=== PATIENT | female | born 1965 | race Caucasian/White ===

== ENCOUNTER 2020-03-19 12:22 | Inpatient (IN) | payer SELFPAY ==
[~2020-03-19] VITALS: Ht 167.6 cm; Wt 108.4 kg
[2020-03-19 12:25] VITALS: Ht 167.6 cm; Wt 108.4 kg
[2020-03-19 13:23] LABS: ALKALINE PHOSPHATASE 75 U/L (46-116); ALT/SGPT 30 U/L (14-59); AST/SGOT 28 U/L (15-37); BILIRUBIN TOTAL 0.34 mg/dL (0.20-1.00); C REACTIVE PROTEIN 11.3 mg/dL (<=0.9); CALCIUM 8.5 mg/dL (8.5-10.1); CARBON DIOXIDE 29.9 mmol/L (21-32); CHLORIDE SERUM 89 mmol/L (98-107); CREATININE SERUM 0.7 mg/dL (0.6-1.0); GFR1 > 60 mL/min; GLUCOSE SERUM 183 mg/dL (74-106); LACTIC DEHYDROGENASE (LDH) 283 U/L (100-190); POTASSIUM SERUM 3.5 mmol/L (3.5-5.1); SODIUM SERUM 125 mmol/L (136-145); TOTAL PROTEIN, SERUM 7.4 g/dL (6.4-8.2)
[2020-03-19 13:27] LABS: BASOPHIL % 0.1 % (0-2); PLATELET COUNT 319 x10^3mcL (130-400)
[2020-03-19 13:29] LABS: RED CELL DISTRIBUTION WIDTH 14.7 % (11.5-14.5)
[2020-03-19 13:38] LABS: ALBUMIN 3.2 g/dL (3.4-5.0)
[2020-03-19] MEDS ORDERED: TIROSINT50 MC1 PO (14:50)
[2020-03-19] MEDS ORDERED: FORTAMET500 M1 PO (14:50)
[2020-03-19] MEDS ORDERED: ZITHROMAX Z-PA250 MG PO (14:50)
[2020-03-19] MEDS ORDERED: LOSARTAN POTASS25 M1 PO (14:51)
[2020-03-19 15:15] LABS: MAGNESIUM 2.1 mg/dL (1.8-2.4); PHOSPHOROUS 3.6 mg/dL (2.5-4.9)
[2020-03-19 15:16] LABS: CHOLESTEROL/HDL RATIO 2.7
[2020-03-19 15:25] LABS: FREE T4 1.68 ng/dL (0.76-1.46); FREE THYROXINE INDEX 4.3 ug/dL (1.4-4.5); T4(THYROXINE) 12.4 ug/dL (4.7-13.3)
[2020-03-19] MEDS ORDERED: LEVO-T100 MCG PO (15:55)
[2020-03-19 16:47] LABS: T3 TOTAL 0.61 ng/mL
[2020-03-19 17:02] VITALS: BP 118/57
[2020-03-19 23:55] VITALS: BP 109/57
[2020-03-20 06:31] VITALS: BP 95/44
[2020-03-20 08:39] LABS: PLATELET COUNT 346 x10^3mcL (130-400)
[2020-03-20 08:56] LABS: BASOPHIL % 0 % (0-2); RED CELL DISTRIBUTION WIDTH 14.6 % (11.5-14.5)
[2020-03-20 09:02] VITALS: BP 92/48
[2020-03-20 10:43] LABS: CARBON DIOXIDE 25.4 mmol/L (21-32); CHLORIDE SERUM 89 mmol/L (98-107); CREATININE SERUM 0.5 mg/dL (0.6-1.0); GFR1 > 60 mL/min; GLUCOSE SERUM 138 mg/dL (74-106); MAGNESIUM 2.2 mg/dL (1.8-2.4); POTASSIUM SERUM 3.7 mmol/L (3.5-5.1); SODIUM SERUM 127 mmol/L (136-145)
[2020-03-20 13:30] VITALS: BP 85/44
[2020-03-20 14:12] VITALS: BP 96/52
[2020-03-20 16:23] VITALS: BP 107/56
[2020-03-20 19:25] LABS: microscopic required? NO
[2020-03-20 19:54] LABS: UA SPECIFIC GRAVITY 1.015 (1.005-1.035); urine erythrocyte NEGATIVE (NEGATIVE)
[2020-03-20 20:04] LABS: AMPHETAMINE QUAL UR NONE DETECTED (See below)
[2020-03-20 20:42] VITALS: BP 101/56
[2020-03-21 05:05] VITALS: BP 101/48
[2020-03-21 07:21] LABS: BASOPHIL % 0.2 % (0-2); PLATELET COUNT 381 x10^3mcL (130-400); RED CELL DISTRIBUTION WIDTH 14.3 % (11.5-14.5)
[2020-03-21 07:27] LABS: CALCIUM 9.1 mg/dL (8.5-10.1); CARBON DIOXIDE 32.3 mmol/L (21-32); CHLORIDE SERUM 91 mmol/L (98-107); CREATININE SERUM 0.6 mg/dL (0.6-1.0); GFR1 > 60 mL/min; GLUCOSE SERUM 136 mg/dL (74-106); MAGNESIUM 2.3 mg/dL (1.8-2.4); PHOSPHOROUS 3.8 mg/dL (2.5-4.9); POTASSIUM SERUM 3.6 mmol/L (3.5-5.1); SODIUM SERUM 129 mmol/L (136-145)
[2020-03-21 08:42] VITALS: BP 107/45
[2020-03-21 09:51] LABS: ALBUMIN 3.2 g/dL (3.4-5.0); BILIRUBIN DIRECT 0.13 mg/dL (0.0-0.2); BILIRUBIN TOTAL 0.4 mg/dL (0.20-1.00); TOTAL PROTEIN, SERUM 7.6 g/dL (6.4-8.2)
[2020-03-21 14:09] VITALS: BP 109/45
[2020-03-21 17:39] VITALS: BP 113/58
[2020-03-21 21:21] VITALS: BP 127/73
[2020-03-22 05:24] VITALS: BP 110/56
[2020-03-22 06:40] VITALS: BP 119/68
[2020-03-22 07:51] LABS: C REACTIVE PROTEIN 9.1 mg/dL (<=0.9); CALCIUM 8.6 mg/dL (8.5-10.1); CARBON DIOXIDE 31.9 mmol/L (21-32); CHLORIDE SERUM 94 mmol/L (98-107); CREATININE SERUM 0.5 mg/dL (0.6-1.0); GFR1 > 60 mL/min; GLUCOSE SERUM 86 mg/dL (74-106); MAGNESIUM 2.2 mg/dL (1.8-2.4); PHOSPHOROUS 4.1 mg/dL (2.5-4.9); POTASSIUM SERUM 3.4 mmol/L (3.5-5.1); SODIUM SERUM 132 mmol/L (136-145)
[2020-03-22 08:17] LABS: BASOPHIL % 0.3 % (0-2); PLATELET COUNT 397 x10^3mcL (130-400); RED CELL DISTRIBUTION WIDTH 14.8 % (11.5-14.5)
[2020-03-22 08:24] LABS: BILIRUBIN DIRECT 0.11 mg/dL (0.0-0.2); BILIRUBIN TOTAL 0.3 mg/dL (0.20-1.00); TOTAL PROTEIN, SERUM 6.9 g/dL (6.4-8.2)
[2020-03-22 08:35] LABS: ALBUMIN 2.8 g/dL (3.4-5.0)
[2020-03-22 09:05] VITALS: BP 98/54
[2020-03-22 13:23] VITALS: BP 94/48
[2020-03-22 17:09] VITALS: BP 108/69
[2020-03-22 20:10] VITALS: BP 112/59
[2020-03-23 05:28] VITALS: BP 102/46
[2020-03-23 07:12] LABS: BASOPHIL % 0.2 % (0-2)
[2020-03-23 07:19] LABS: PLATELET COUNT 414 x10^3mcL (130-400); RED CELL DISTRIBUTION WIDTH 14.7 % (11.5-14.5)
[2020-03-23 07:36] LABS: CALCIUM 8.6 mg/dL (8.5-10.1); CARBON DIOXIDE 29.1 mmol/L (21-32); CHLORIDE SERUM 95 mmol/L (98-107); CREATININE SERUM 0.6 mg/dL (0.6-1.0); GFR1 > 60 mL/min; GLUCOSE SERUM 93 mg/dL (74-106); MAGNESIUM 2.3 mg/dL (1.8-2.4); PHOSPHOROUS 4.1 mg/dL (2.5-4.9); POTASSIUM SERUM 3.7 mmol/L (3.5-5.1); SODIUM SERUM 134 mmol/L (136-145)
[2020-03-23 07:51] LABS: BILIRUBIN DIRECT 0.1 mg/dL (0.0-0.2); BILIRUBIN TOTAL 0.4 mg/dL (0.20-1.00); TOTAL PROTEIN, SERUM 6.6 g/dL (6.4-8.2)
[2020-03-23 07:53] LABS: ALBUMIN 2.8 g/dL (3.4-5.0)
[2020-03-23 08:30] VITALS: BP 117/50
[2020-03-23 13:21] VITALS: BP 107/46
[2020-03-23 16:59] VITALS: BP 107/52
[2020-03-23 19:37] VITALS: BP 106/63
[2020-03-24] VITALS: BP 134/76
[2020-03-24 05:09] VITALS: BP 113/63
[2020-03-24 07:13] LABS: BASOPHIL % 0.4 % (0-2)
[2020-03-24 07:16] LABS: PLATELET COUNT 437 x10^3mcL (130-400); RED CELL DISTRIBUTION WIDTH 14.7 % (11.5-14.5)
[2020-03-24 08:03] LABS: CALCIUM 9.3 mg/dL (8.5-10.1); CARBON DIOXIDE 33.7 mmol/L (21-32); CHLORIDE SERUM 97 mmol/L (98-107); CREATININE SERUM 0.4 mg/dL (0.6-1.0); GFR1 > 60 mL/min; GLUCOSE SERUM 76 mg/dL (74-106); MAGNESIUM 2.4 mg/dL (1.8-2.4); PHOSPHOROUS 3.9 mg/dL (2.5-4.9); POTASSIUM SERUM 3.4 mmol/L (3.5-5.1); SODIUM SERUM 136 mmol/L (136-145)
[2020-03-24 08:11] VITALS: BP 97/40
[2020-03-24 09:22] LABS: ALBUMIN 2.8 g/dL (3.4-5.0); BILIRUBIN DIRECT 0.13 mg/dL (0.0-0.2); BILIRUBIN TOTAL 0.4 mg/dL (0.20-1.00); TOTAL PROTEIN, SERUM 6.6 g/dL (6.4-8.2)
[2020-03-24 12:55] VITALS: BP 105/46
[2020-03-24 16:28] VITALS: BP 121/59
[2020-03-24 21:31] VITALS: BP 132/62
[2020-03-25] VITALS (8 sets, daily range): BP systolic 115–149; BP diastolic 52–80
[2020-03-25 08:01] LABS: BASOPHIL % 0.3 % (0-2); RED CELL DISTRIBUTION WIDTH 14.5 % (11.5-14.5)
[2020-03-25 08:04] LABS: PLATELET COUNT 452 x10^3mcL (130-400)
[2020-03-25 08:19] LABS: CALCIUM 8.9 mg/dL (8.5-10.1); CARBON DIOXIDE 34.7 mmol/L (21-32); CHLORIDE SERUM 98 mmol/L (98-107); CREATININE SERUM 0.5 mg/dL (0.6-1.0); GFR1 > 60 mL/min; GLUCOSE SERUM 91 mg/dL (74-106); MAGNESIUM 2.1 mg/dL (1.8-2.4); PHOSPHOROUS 3.8 mg/dL (2.5-4.9); POTASSIUM SERUM 3.6 mmol/L (3.5-5.1); SODIUM SERUM 135 mmol/L (136-145)
[2020-03-25 09:00] LABS: BILIRUBIN DIRECT 0.12 mg/dL (0.0-0.2); BILIRUBIN TOTAL 0.33 mg/dL (0.20-1.00)
[2020-03-25 09:31] LABS: ALBUMIN 2.7 g/dL (3.4-5.0); TOTAL PROTEIN, SERUM 5.7 g/dL (6.4-8.2)
[2020-03-26 06:34] VITALS: BP 142/72
[2020-03-26 08:26] VITALS: BP 139/72
[2020-03-26 12:08] VITALS: BP 132/66
[2020-03-26 15:59] VITALS: BP 103/70
[2020-03-26 22:40] VITALS: BP 124/57
[2020-03-27 05:56] VITALS: BP 131/67
[2020-03-27 07:40] LABS: CALCIUM 9.2 mg/dL (8.5-10.1); CARBON DIOXIDE 29.5 mmol/L (21-32); CHLORIDE SERUM 98 mmol/L (98-107); CREATININE SERUM 0.5 mg/dL (0.6-1.0); GFR1 > 60 mL/min; GLUCOSE SERUM 85 mg/dL (74-106); MAGNESIUM 2.3 mg/dL (1.8-2.4); PHOSPHOROUS 4.4 mg/dL (2.5-4.9); POTASSIUM SERUM 4.1 mmol/L (3.5-5.1); SODIUM SERUM 135 mmol/L (136-145)
[2020-03-27 07:48] LABS: BASOPHIL % 0.3 % (0-2); PLATELET COUNT 525 x10^3mcL (130-400); RED CELL DISTRIBUTION WIDTH 14.7 % (11.5-14.5)
[2020-03-27 08:20] VITALS: BP 118/58
[2020-03-27 12:20] VITALS: BP 130/62
[2020-03-27 16:27] VITALS: BP 116/59
[2020-03-27 20:17] VITALS: BP 115/58
[2020-03-28 06:35] VITALS: BP 128/70
[2020-03-28] MEDS ORDERED: VENTOLIN H0.09 MG/A1 INH (08:11)
[2020-03-28 08:13] VITALS: BP 116/64
[2020-03-28] MEDS ORDERED: TYL325 PO (08:28)
[2020-03-28] MEDS ORDERED: BG FS (08:29)
[2020-03-28] MEDS ORDERED: ROBDML PO (08:30)
[2020-03-28] MEDS ORDERED: MUCINEX600 MG PO (08:41)
[2020-03-28] MEDS ORDERED: COL100 PO (08:43)
[2020-03-28] MEDS ORDERED: DECADRON6 MG PO (08:46)
[2020-03-28] MEDS ORDERED: ELIQUIS2.5 MG PO (08:47)
[2020-03-28] MEDS ORDERED: ACCU-CHEK GUID1 EAC1 MC (09:00)
[2020-03-28] MEDS ORDERED: EASY COMFORT ALCO70% TOP (09:02)
[2020-03-28] MEDS ORDERED: LANCETS1 EAC3 TOP (09:02)
[2020-03-28 11:31] VITALS: BP 116/64
[2020-03-28] MEDS ORDERED: FORTAMET500 M1 PO (21:12)
[2020-03-28] MEDS ORDERED: LOSARTAN POTASS25 M1 PO (21:12)
[2020-03-28] MEDS ORDERED: LEVO-T100 MCG PO (21:12)
== END 2020-03-28 13:11 | disposition home or self-care (01) | DRG 871 ==
LOC: ED 12:22 → DU 14:15
PROVIDERS: Emergency Medicine; Student in an Organized Health Care Education/Training Program; ADMIT Internal Medicine; ATTEND Internal Medicine
PROC: XW033E5 Introduction of Remdesivir Anti-infective into Peripheral Vein, Percutaneous Approach, New Technology Group 5 (ICD-10-PCS; 2020-03-21)
PROC: XW033E5 Introduction of Remdesivir Anti-infective into Peripheral Vein, Percutaneous Approach, New Technology Group 5 (ICD-10-PCS; 2020-03-22)
PROC: XW13325 Transfusion of Convalescent Plasma (Nonautologous) into Peripheral Vein, Percutaneous Approach, New Technology Group 5 (ICD-10-PCS; 2020-03-23)
PROC: XW033E5 Introduction of Remdesivir Anti-infective into Peripheral Vein, Percutaneous Approach, New Technology Group 5 (ICD-10-PCS; 2020-03-23)
PROC: XW033E5 Introduction of Remdesivir Anti-infective into Peripheral Vein, Percutaneous Approach, New Technology Group 5 (ICD-10-PCS; 2020-03-24)
PROC: XW13325 Transfusion of Convalescent Plasma (Nonautologous) into Peripheral Vein, Percutaneous Approach, New Technology Group 5 (ICD-10-PCS; principal; 2020-03-25)
PROC: XW033E5 Introduction of Remdesivir Anti-infective into Peripheral Vein, Percutaneous Approach, New Technology Group 5 (ICD-10-PCS; 2020-03-25)
DX: A41.89 Other specified sepsis (principal); U07.1 COVID-19; J96.01 Acute respiratory failure with hypoxia; J12.89 Other viral pneumonia; E87.1 Hypo-osmolality and hyponatremia; R65.20 Severe sepsis without septic shock; I10 Essential (primary) hypertension; E03.9 Hypothyroidism, unspecified; E66.9 Obesity, unspecified; E11.65 Type 2 diabetes mellitus with hyperglycemia; Z90.49 Acquired absence of other specified parts of digestive tract; Z79.899 Other long term (current) drug therapy; Z79.84 Long term (current) use of oral hypoglycemic drugs; Z68.38 Body mass index [BMI] 38.0-38.9, adult
CPT/HCPCS: 36600; 82962; 83880; 84439; 87804; G0378; J0456; J0696; J1100; J1650; J1815; J2405; J3535; J7050; J7060; Q0092; Q0163; U0003-CS